=== PATIENT | male | born 1955 | race Caucasian/White ===

== ENCOUNTER → 2024-02-18 09:12 | Outpatient (BNVA) | payer MEDICARE, SELFPAY | PROVIDERS: Family Provider Family Medicine; PCP Family Medicine; Visit Provider Family Medicine | DX: R10.9 Unspecified abdominal pain (principal); Z51.81 Encounter for therapeutic drug level monitoring | CPT/HCPCS: 80053; 85025; 86141 ==

== ENCOUNTER 2024-03-02 13:17 | Outpatient (CLI) | payer MEDICARE, SELFPAY ==
--- NOTE | 2024-03-02 13:30 | CTR_ITS ---
PROCEDURE INFORMATION: Exam: CT Abdomen And Pelvis With Contrast Exam date and time: 03/02/2024 2:03 PM Age: 68 years old Clinical indication: Abdominal pain; Left; Patient HX: Right side flank pain x 3-4 months, HX of stones; Additional info: Abd pain, right flank pain TECHNIQUE: Imaging protocol: Computed tomography of the abdomen and pelvis with contrast. Radiation optimization: All CT scans at this facility use at least one of these dose optimization techniques: automated exposure control; mA and/or kV adjustment per patient size (includes targeted exams where dose is matched to clinical indication); or iterative reconstruction. Contrast material: OMNI 350; Contrast volume: 100 ml; Contrast route: INTRAVENOUS (IV); COMPARISON: No relevant prior studies available. RADIATION DOSE METRICS: Total DLP (mGy-cm): 777.24 FINDINGS: Liver: Normal. No mass. Gallbladder and biliary ducts: Normal. No calcified stones. No ductal dilation. Pancreas: Normal. No ductal dilation. Spleen: Normal. No splenomegaly. Adrenal glands: Normal. No mass. Kidneys and ureters: Normal. No hydronephrosis. Stomach and bowel: Unremarkable. No obstruction. No mucosal thickening. Appendix: No evidence of appendicitis. Intraperitoneal space: Unremarkable. No free air. No significant fluid collection. Vasculature: Unremarkable. No abdominal aortic aneurysm. Lymph nodes: Unremarkable. No enlarged lymph nodes. Urinary bladder: Unremarkable as visualized. Reproductive: Unremarkable as visualized. Bones/joints: Unremarkable. No acute fracture. Soft tissues: Unremarkable. CT/CT abdomen pelvis w con* [id number] IMPRESSION: No acute findings.
[2024-03-02] MEDS: iohexol 350 mg/mL 500 mL Btl (per mL) IV (14:08)
== END 2024-03-02 13:18 | disposition home or self-care (01) ==
LOC: RAD 13:17
PROVIDERS: Family Provider Family Medicine; PCP Family Medicine; Visit Provider Family Medicine
DX: R10.9 Unspecified abdominal pain (principal)
CPT/HCPCS: 74177; Q9967

== ENCOUNTER → 2024-03-03 11:44 | Outpatient (BNVA) | payer MEDICARE, SELFPAY | PROVIDERS: Family Provider Family Medicine; PCP Family Medicine; Visit Provider Family Medicine | DX: R73.09 Other abnormal glucose (principal) | CPT/HCPCS: 83036 ==

== ENCOUNTER 2024-07-05 17:17 | Emergency (ER) | payer MEDICARE, SELFPAY ==
[2024-07-05 17:25] VITALS: BP 170/87; PULSE 60; RESP 18; TEMP 36.5; O2SAT 98; BMI 34.2
--- NOTE | 2024-07-05 17:52 | XRR_ITS ---
PROCEDURE INFORMATION: Exam: XR Lumbosacral Spine Exam date and time: 07/05/2024 6:03 PM Age: 68 years old Clinical indication: Injury or trauma; Fall; Blunt trauma (contusions or hematomas) TECHNIQUE: Imaging protocol: Radiologic exam of the lumbosacral spine. Views: 2 or 3 views. 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 No evidence of acute fracture or subluxation. The sacrum is grossly intact. Soft tissues: Grossly unremarkable. Subcentimeter metallic density in the right hemipelvis. XR/XR lumbar spine 2-3V* [id number] IMPRESSION: 1. No evidence of acute fracture or subluxation of the lumbar spine. If there is ongoing clinical suspicion for traumatic injury, consider correlation with CT.
[2024-07-05] MEDS: naproxen 500 mg Tablet PO (18:47)
--- NOTE | 2024-07-05 19:05 | W.ED.BACK ---
HPI - Back Pain/Injury General: Chief Complaint: Back Pain/Injury Stated Complaint: Fall - back injury Time Seen by Provider: 07/05/24 18:14 Source: patient Mode of arrival: ambulatory Limitations: no limitations History of Present Illness: Patient is a 68-year-old male who is presented to the emergency department with low back pain beginning today. Patient states he slipped on wet steps and struck his lower back, he notes taken Tylenol afterwards that is somewhat improved his pain. He states that he primarily struck the right lower back, is not having any real spinous process tenderness. No urinary or bowel incontinence. No distal paralysis or paresthesias to report. No history of back surgery and no other symptoms to report at this time. MD elicited complaint: back pain Onset (ago): hour(s) Timing: constant Severity: moderate Location: right lower back Exacerbating factors: movement Relieving factors: medication Context: fall Associated symptoms: Deny abdominal pain, chills, fecal incontinence, fever(s), nausea or vomiting Related Data Previous Rx's Medication Instructions Recorded ketorolac 10 mg tablet 10 mg PO Q8H PRN pain #15 tabs 07/05/24 Allergies Allergy/AdvReac Type Severity Reaction Status Date / Time codeine Allergy Intermediate Unknown Verified 07/23/22 10:28 Review of Systems General: Reports: 10 or more systems reviewed and unremarkable except in HPI and below Const: Denies: fever(s) or chills Card: Denies: chest pain Resp: Denies: dyspnea or productive cough GI: Denies: abdominal pain, nausea, vomiting, diarrhea or fecal incontinence : Denies: flank pain or urinary incontinence Musc: Reports: back pain; Denies: neck pain, extremity pain, extremity swelling, joint pain, joint swelling, joint redness, joint warmth, limited range of motion or muscle weakness Skin/Breast: Denies: rash Neuro: Denies: headache(s), numbness in extremities or weakness in extremities PFSH ED PFSH: Surgical History History of carpal tunnel surgery of right wrist Family History Mother Diabetes Sister CAD (coronary artery disease) Sister Cancer Lung cancer - smoker Social History Smoking and tobacco/nicotine status: never used tobacco/nicotine Alcohol intake: current Alcohol intake frequency: holidays/special occasions only Substance/Drug Use: never Current occupation: [employer] Physical Exam Const: COMMON NORMALS: no acute distress, patient oriented x3, no limitations, healthy appearing, alert and well nourished HENMT: COMMON NORMALS: normocephalic and atraumatic HEAD & SCALP: normocephalic and atraumatic Neck/C-Spine: COMMON NORMALS: full ROM, supple and no meningeal signs Resp: COMMON NORMALS: normal respiratory effort, No use of accessory muscles and clear to auscultation bilaterally AUSCULTATION: clear to auscultation bilaterally Cardio: COMMON NORMALS: regular rate and regular rhythm RATE: regular rate RHYTHM: regular rhythm Back/Pelvis: OTHER: There is an abrasion to the right lower back, this area is consistent with his tenderness to palpation. There is no reproducible spinous process tenderness of the thoracic or lumbar spine. Somewhat antalgic gait, but he has no distal sensory changes and has good strength distally. There is pain with range of motion, worse with lateral rotation at the low back. Extremity: COMMON NORMALS: normal to inspection, full ROM, capillary refill normal, no joint enlargement and no clubbing, cyanosis or edema Neuro: COMMON NORMALS: patient oriented x3, moves all extremities, no focal motor deficits and no sensory deficits noted SENSORIUM/ORIENTATION: Yes alert MENINGEAL SIGNS: Yes no meningeal signs Skin: COMMON NORMALS: no rashes or lesions noted GENERAL SKIN EXAM: no rashes or lesions noted Course Vital Signs: Vital signs: Vital Signs Temperature 97.7 F 07/05/24 17:25 Pulse Rate 60 07/05/24 17:25 Respiratory Rate 18 07/05/24 17:25 Blood Pressure 170/87 07/05/24 17:25 Pulse Oximetry 98 07/05/24 17:25 Oxygen Delivery Me thod Room Air 07/05/24 17:25 MDM - Back Pain/Injury Medical Decision Making Patient fell a few hours prior to arrival, he did note quite a bit of improvement after taking his own Tylenol at home. He was concerned of a fracture as he states he is supposed to put up a roof, and x-ray today did not demonstrate any fracture and I do not suspect there is a fracture as he had no spinous process tenderness. He did have an abrasion to the right lower back which does appear where he hit, and instructed him to continue Tylenol and he may add in Toradol that I will prescribe to him at his request. Reasons to return discussed he is informed to follow-up with primary care. Labs Radiology Impressions Lumbar Spine X-Ray 07/05/24 17:52 IMPRESSION: 1. No evidence of acute fracture or subluxation of the lumbar spine. If there is ongoing clinical suspicion for traumatic injury, consider correlation with CT. All radiology interpretation(s) finalized by discharge Discharge Plan Discharge Patient Disposition: Home Clinical Impression: Contusion of lower back Condition: Stable Prescriptions: New ketorolac 10 mg tablet 10 mg PO Q8H PRN (Reason: pain) Qty: 15 0RF Discharge Orders: Discharge ED (Routine); Ordered 07/05/24 Ordered By: Leo Cleveland Referrals: Serge Patricia MD [Primary Care Provider] - Patient Instructions: Pain Management Activity Restrictions/Additional Instructions: Take Toradol as prescribed. You may alternate this with Tylenol. Ice/heat to the right lower back. Avoid reinjury, gentle range of motion exercises. Follow-up with primary care and return with any new or worsening. Coding Level of Care Code ED Material Checker for Batsheva Guerin
[2024-07-05 19:22] VITALS: BP 170/87; PULSE 60; O2SAT 98
== END 2024-07-05 19:23 | disposition home or self-care (01) ==
PROVIDERS: Emergency Provider Physician Assistant; PCP Family Medicine
DX: S30.0XXA Contusion of lower back and pelvis, initial encounter (principal); W10.8XXA Fall (on) (from) other stairs and steps, initial encounter
CPT/HCPCS: 72100; 99283

== ENCOUNTER → 2025-07-11 14:17 | Outpatient (BNVA) | payer MEDICARE, SELFPAY | PROVIDERS: PCP Family Medicine; Visit Provider Family Medicine | DX: Z51.81 Encounter for therapeutic drug level monitoring (principal); Z13.6 Encounter for screening for cardiovascular disorders; Z00.00 Encounter for general adult medical examination without abnormal findings; R73.09 Other abnormal glucose; R35.0 Frequency of micturition | CPT/HCPCS: 80053; 80061; 83036; 84153; 85025 ==

== ENCOUNTER → 2025-08-17 13:31 | Outpatient (BNVA) | payer MEDICARE, SELFPAY | PROVIDERS: PCP Family Medicine; Visit Provider Family Medicine | DX: R53.81 Other malaise (principal); R53.83 Other fatigue | CPT/HCPCS: 84403 ==